=== PATIENT | male | born 1990 | race Caucasian/White ===

== ENCOUNTER 2024-04-24 19:42 | Day surgery (SDC) | payer SELFPAY ==
[2024-04-24] VITALS (8 sets, daily range): BP systolic 120–144; BP diastolic 72–87; BMI 26.7; BMI 27.3
[2024-04-24 11:57] LABS: % Basophils 1.1 % (0-2); % Eosinophils 3.9 % (0-6); % Immature Granulocytes 0.3 % (0-0.5); % Lymphocytes 31.6 % (20.5-51.1); % Monocytes 8.7 % (1.7-9.3); % Neutrophils 54.4 % (42.2-75.2); Absolute Basophils 0.1 10^3/uL (0-0.2); Absolute Eosinophils 0.2 10^3/uL (0-0.7); Absolute Monocytes 0.5 10^3/uL (0.1-0.6); Absolute Neutrophils 3.4 10^3/uL (1.4-6.5); Hematocrit 43.6 % (39.0-52.0); Hemoglobin 15.4 g/dL (13.0-18.0); Mean Corp Hgb Conc. 35.3 g/dL (33.0-37.0); Mean Corpuscular Hgb 29.9 pg (27.0-31.0); Mean Corpuscular Volume 84.7 fL (80.0-94.0); Mean Platelet Volume 8.3 fL (7.4-10.4); Nucleated Red Blood Cells % 0 % (-); Platelet Count 264 10^3/uL (130-400); Red Blood Cell Count 5.15 10^6/uL (4.70-6.10); Red Cell Dist. Width 12.3 % (11.5-14.5); White Blood Cell Count 6.2 10^3/uL (4.8-10.8)
[2024-04-24 12:15] LABS: ALT (SGPT) 36 U/L (0-50); AST (SGOT) 25 U/L (17-59); Albumin 4.8 g/dl (3.5-5.0); Alkaline Phosphatase 46 U/L (38-126); Blood Urea Nitrogen 16 mg/dl (9-20); Calcium 9.6 mg/dl (8.4-10.2); Carbon Dioxide 23 mmol/L (22-30); Chloride 104 mmol/L (98-107); Glucose 109 mg/dl (70-99); Lipase 77 U/L (23-300); Potassium 4.5 mmol/L (3.5-5.1); Sodium 137 mmol/L (135-145); Total Bilirubin 0.8 mg/dl (0.2-1.3); Total Protein 7.2 g/dl (6.3-8.2); eGFR > 60.00
[2024-04-24] MEDS: NSS 1000 IV ×2 (13:38→21:31)
[2024-04-24] MEDS: TORADOL 30 MG IV (13:42)
[2024-04-24 14:33] LABS: Urine Albumin Negative (Neg - Trace); Urine Bilirubin Negative (Negative); Urine Character Clear (Clear); Urine Color Yellow; Urine Glucose Negative (Negative); Urine Ketone Negative (Negative); Urine Leukocyte Negative (Negative); Urine Nitrite Negative (Negative); Urine Occult Blood 1+ (Negative); Urine Specific Gravity 1.015 (<1.030); Urine Urobilinogen Negative (Neg - 1+)
[2024-04-24 14:45] LABS: Urine Mucus Moderate; Urine Squamous Cell 0-2 /LPF (Few); Urine White Cell 0-2 /HPF (0-5)
[2024-04-24] MEDS: MORPHINE SULFATE 4 MG IV (15:43)
[2024-04-24] MEDS: ZOSYN 50 IV (15:44)
--- NOTE | 2024-04-24 15:53 | ED.GENMED ---
History of Present Illness
General
Chief Complaint: Abdominal Pain
Source: patient and spouse
Exam Limitations: none
Time Seen by Provider: 04/24/24 12:45
Nursing documentation reviewed up to this point in time: agreed with
History of Present Illness
History of Present Illness:
34-year-old male without significant past medical history presenting to the emergency department with worsening right lower quadrant abdominal pain since last night. Denies any significant radiating pain denies nausea vomiting diarrhea denies any
chest pain shortness of breath fevers or recent illness. No surgeries in the past.
Review of Systems
Review of Systems
Allergies reviewed?: Yes
All Other Systems: ROS reviewed and negative except as documented in HPI and ROS
Phy Exam
Physical Exam
Physical Exam:
GENERAL: Alert , in no apparent distress
EYE: pupils equal and reactive
NECK: Supple, no significant adenopathy.
ENT: o/p clr, mmm.
CARDIAC: Regular rate and rhythm .
LUNGS: Clear breath sounds bilaterally, no acute respiratory distress, no wheezes/rales/rhonchi
ABDOMEN: Tenderness palpation to the right lower quadrant at McBurney's point. No peritoneal signs remainder of the abdomen is soft
NEUROLOGICAL: Alert and oriented, no focal neuro deficits
SKIN: Warm and dry, skin intact.
MUSCULOSKELETAL: No edema, well perfused.
PSYCH: Normal and appropriate interaction.
Course
Orders/Labs/Results
Orders:
Orders
04/24/24 11:39
Complete Blood Count/With Diff Urgent
Comprehensive Metabolic Panel Urgent
Lipase Urgent
04/24/24 13:18
CT Abd/Pel (IV only)-DH only Urgent
Comment:
Reason For Exam: rlq pain
0.9% Sodium Chloride 1000 ml [Nss] 1,000 ml IV BOLUS
Ketorolac [Toradol] 30 mg IV NOW STA
04/24/24 14:23
Urinalysis Reflex To Culture Urgent
Date Specimen was Collected: 04/24/24
Time Specimen was Collected: 14:22
Urine Microscopic Reflex Cult Urgent
04/24/24 15:25
Piperacillin/Tazo 3.375 Gram [Zosyn] 3.375 gram in 50 ml IV NOW
04/24/24 15:37
Morphine Sulfate 4 mg IV NOW STA
04/24/24 16:55
Acetaminophen [Tylenol] 650 mg PO Q4HPRN PRN
HYDROmorphone [Dilaudid] 0.5 mg IV Q4HPRN PRN
04/24/24 17:04
HYDROmorphone [Dilaudid] 0.25 mg IV PACU-Q5MPRN PRN
HYDROmorphone [Dilaudid] 0.5 mg IV PACU-Q5MPRN PRN
Meperidine [Demerol] 12.5 mg IV PACU-Q5MPRN PRN
Ondansetron Injectable [Zofran] 4 mg IV PACU-ONCEPRN PRN
Prochlorperazine [Compazine] 5 mg IV PACU-ONCEPRN PRN
Notify MD As Directed
Notify physician if: for SDS patients with known or suspected sleep obstructive sleep apnea, monitor in the
PACU.
Notify MD for any apneic/desaturation episodes
O2 Therapy [RESP] Urgent
Titrate/Wean O2 to maintain O2 sat greater than (%): 92
Special Instructions: -Provide supplemental oxygen to achieve O2 sat of 92% or greater.
-After 15 min, may wean O2 and discontinue if patient is able to maintain O2 sat of 92%
or greater during recovery period.
If patient is a discharge home, without oxygen therapy, notify anestheiologist if
unable to maintain O2 SAT of 92% or greater on room air for MD clearance.
04/24/24 17:15
Normosol (Mult Electrolytes) [Normosol-R/Plasmalyte-A] 1,000 ml IV PER PROTOCOL
04/24/24 18:00
Piperacillin/Tazo 3.375 Gram [Zosyn] 3.375 gram in 50 ml IV Q6H
Abnormal Lab Results
04/24/24 04/24/24
11:39 14:23
Glucose 109 H mg/dl
(70-99)
Ur Occult Blood Reflex 1+ A
(Negative)
Urine RBC 7-10 A /HPF
(0-2)
04/24/24 11:39
04/24/24 11:39
Vital Signs
Initial and Last Documented VS:
Initial Vital Signs
Temp Pulse Resp BP Pulse Ox
98.4 F 75 20 127/85 100
04/24/24 11:31 04/24/24 11:31 04/24/24 11:31 04/24/24 11:31 04/24/24 11:31
Last Documented Vital Signs
Temp Pulse Resp BP Pulse Ox
98.4 F 75 20 127/85 100
04/24/24 11:31 04/24/24 11:31 04/24/24 11:31 04/24/24 11:31 04/24/24 11:31
MDM/Problems Addressed
MDM/Problems Addressed:
34-year-old male presenting to the emergency department today with concerns of right lower quadrant pain worsening since yesterday. Vital signs normal on arrival labs unremarkable CT scan showing potential early appendicitis which is consistent
with physical examination. Case discussed with general surgery patient started on Zosyn will be admitted for surgical intervention.
*Critical Care Note
Total Time (30-74mins, 75-104mins- exclusive of procedures): Not Applicable
ED Attending Note
-
Portions of this chart may have been created with voice recognition software.� Occasional wrong word or��sound alike� substitutions may have occurred due to the inherent limitations of voice recognition software.
Discharge Plan
Departure
Patient Disposition: Admit
Date of Disposition: 04/24/24
Time of Disposition: 15:54
Admit to: Med/Surg
Admit to doctor: Faviola
Presentation/result/management discussed w/ accepting MD/DO: Gen Surgery
Patient with high blood pressure during this ER visit?: No
Condition: Good
Covid-19: Not Applicable
Discharge Problem:
Acute appendicitis
Prescriptions:
No Action
minoxidil 2.5 mg Tablet
3.75 mg PO DAILY
dextroamphetamine-amphetamine [Adderall] 10 mg Tablet
10 mg PO DAILYPRN PRN (Reason: afternoon dose for work days)
terbinafine HCl 250 mg Tablet
250 mg PO DAILY
dextroamphetamine-amphetamine [Adderall XR] 20 mg Capsule,Extended Release 24hr
20 mg PO DAILYPRN PRN (Reason: work days)
finasteride 1 mg Tablet
1 mg PO DAILY
Referrals:
Yumiko Rojo MD [Family Provider] -
Interventions
Interventions:
*Risk Screen - Suicide Last Done: 04/24/24 11:31
*General Assessment Last Done: 04/24/24 11:31
*Neglect/Abuse Screening Last Done: 04/24/24 11:31
*ED COVID-19 Vaccine History Last Done: 04/24/24 12:56
BL-Ulsfxp-[id number] Assessment Last Done: 04/24/24 12:56
Discharge Date and Time
Print Language: SETSWANA
--- NOTE | 2024-04-24 17:19 | HPS.HSE ---
Family Physician
-
Family Physician: Yumiko Rojo
Chief Complaint
-
RLQ abdominal pain
History of Present Illness
Patient is a 34 yo M with a PMH notable for ADD and s/p open pyloromyotomy as a child who presents with 24 to 48 hours of RLQ abdominal pain. Gerhard states that his symptoms began on Tuesday night as a generalized bilateral abdominal discomfort.
Initially attributed the symptoms to MSK discomfort. Over the past 24 hours he has had worsening pain which is localized to the RLQ. No nausea or vomiting. No fevers or chills. Associated diarrhea. He denies any chronic GI issues. No strong
family history of IBD or colon cancers.
Medical History
Past Medical History
Past Medical History: Reports Psychiatric ([facility])
Past Surgical History: Reports Other (Open pyloromyotomy)
Social History
Tobacco: Non-smoker
Alcohol: Occasional
Drug: None
Personal:
Living: With Family
Employment: Employed
Family History
Family History: Not pertinent
Allergies / Home Medications
Allergies reflects when Allergies were last updated in [employer].
Home Medications with original date entered in [employer]
Allergy/Medication List:
NKDA
Review of Systems
-
A 12 point ROS was completed and negative except as noted: Yes
Physical Exam
Vital Signs
Vital Signs
Temp Pulse Resp BP Pulse Ox
98.4 F 75 20 127/85 100
04/24/24 11:31 04/24/24 11:31 04/24/24 11:31 04/24/24 11:31 04/24/24 11:31
Physical Exam
General: Well Developed, Well Nourished and No Apparent Distress
HEENT: NormoCephalic and Anicteric
Respiratory: Non Labored Respirations
Cardiac: Regular Rhythm
GI: Soft, Non Distended, Tender (RLQ) and Other (Nonperitoneal)
Musculoskeletal: No Edema
Skin: Warm and Dry
Neuro: Nonfocal/grossly intact
Laboratory Results
-
04/24/24 11:39
04/24/24 11:39
Laboratory Results
Total Bilirubin 0.8 mg/dl (0.2-1.3) 04/24/24 11:39
AST 25 U/L (17-59) 04/24/24 11:39
ALT 36 U/L (0-50) 04/24/24 11:39
Alkaline Phosphatase 46 U/L (38-126) 04/24/24 11:39
Lipase 77 U/L (23-300) 04/24/24 11:39
Data Reviewed
-
CT Scan: Image Personally Visualized and interpreted and Report Reviewed by me
Lab Data: Labs Reviewed by me
Impression/Plan
-
IMPRESSION:
Patient is a 34 yo M p/w acute appendicitis
The natural history and pathophysiology of appendicitis was discussed. Anatomy was reviewed. CT scan imaging as risks relates to his appendix was reviewed. Options for management including medical management with antibiotics versus surgical
management with appendectomy were considered and discussed. The pros and cons of both approaches was discussed. Specifically, we discussed failure of medical management and future episodes of appendicitis versus surgical risks. Recommend
appendectomy, patient agrees and willing to proceed.
Plan for laparoscopic appendectomy. The procedure itself, as well as the risks, benefits, and alternatives was discussed. Specifically, we discussed the risk of bleeding, infection, injury to surrounding structures (bowel, bladder), staple line
leak, need for open procedure. Typical postprocedure recovery was discussed. All questions answered. Consent signed.
PLAN:
-- Laparoscopic appendectomy
-- NPO, IVF
-- Pain control: Tylenol and IV Dilaudid PRN
-- Abx: Zosyn
-- Admit post-op
[2024-04-24] MEDS: DILAUDID 0.5 MG IV ×2 (18:00→22:00)
--- NOTE | 2024-04-24 18:49 | W.SUR.PREOP ---
Pre-Operative Surgical Note
-
I have examined this patient prior to the performance of the scheduled procedure.
The patient's condition is unchanged from the time of the current History and
Physical and the patient is able to undergo the scheduled procedure.
--- NOTE | 2024-04-24 20:21 | W.IMMPOSTOP ---
Surgical Immed Post Op Note
-
Primary Surgeon: Faviola
Assisting Surgeon: None
Pre-op Diagnosis: Acute appendicitis
Post-op Diagnosis: Acute appendicitis
Procedure Performed: Laparoscopic appendectomy
Anesthesia Type: General
Specimen / Cultures:
1. Appendix
Estimated Blood Loss: 3 cc
Complications: None
Operative Findings:
1. Acutely inflamed appendix, mild, no perforation or spillage, mild serous rectaive fluid
2. Mesentery with Ligasure, base with cruz load stapler
[2024-04-25 00:57] VITALS: BP 115/61
[2024-04-25 01:48] VITALS: BP 117/60
[2024-04-25 03:13] VITALS: BP 114/60
[2024-04-25 05:26] VITALS: BMI 28.7
[2024-04-25] MEDS: TYLENOL 650 MG PO (07:27)
[2024-04-25 07:34] VITALS: BP 112/67
[2024-04-25] MEDS: DILAUDID 0.5 MG IV (10:07)
--- NOTE | 2024-04-25 10:22 | CM ---
Reviewed the chart notes. Patient discharged.
--- NOTE | 2024-04-25 11:03 | W.PN.GS2 ---
Today's Communication / Plan
-
Possible DC later today
Assessment / Plan
-
34M POD1 s/p lap appy for acute appendicitis
AFVSS, ambulating, henry PO. Poor pain control 2/2 not taking meds, otherwise doing well.
Advised to alternate tylenol/ibuprofen, tramadol for breakthrough,. Advised to stay ahead of the pain rather than delaying taking meds.
Will re-eval this aftrenoon for readiness for DC
Subjective Data
-
Date of Service: April 25, 2024
Amblating, henry PO, denies n/v, c/o of poor pain control as he is trying to avoid takng pain meds
Objective Data
-
Intake and Output
04/24/24 04/25/24 04/26/24
06:59 06:59 06:59
Intake Total 680 / 680
Balance 680 / 680
Intake:
Oral fluids 480 / 480
IV fluids (Total) 200 / 200
Normosol 200 / 200
Vital Signs
Temp Pulse Resp BP Pulse Ox
98.0 F 91 12 112/67 95
04/25/24 07:34 04/25/24 07:34 04/25/24 07:34 04/25/24 07:34 04/25/24 07:35
Lab Results
04/24/24 11:39
04/24/24 11:39
Calcium 9.6 mg/dl (8.4-10.2) 04/24/24 11:39
Total Bilirubin 0.8 mg/dl (0.2-1.3) 04/24/24 11:39
AST 25 U/L (17-59) 04/24/24 11:39
ALT 36 U/L (0-50) 04/24/24 11:39
Alkaline Phosphatase 46 U/L (38-126) 04/24/24 11:39
Total Protein 7.2 g/dl (6.3-8.2) 04/24/24 11:39
Albumin 4.8 g/dl (3.5-5.0) 04/24/24 11:39
Physical Exam
-
Gen: NAD
Abd: soft, approp ttp, incisions cdi with glue
[2024-04-25 11:10] VITALS: BP 104/61
== END 2024-04-25 14:01 | disposition home or self-care (01) ==
LOC: SDS 19:42
PROVIDERS: Physician Assistant; ATTENDING PHYSICIAN Surgery; EMERGENCY PHYSICIAN Emergency Medicine; FAMILY PHYSICIAN Internal Medicine
DX: K38.8 Other specified diseases of appendix (principal)
CPT/HCPCS: 44970; 88304; 74177; 80053; 81003; 81015; 83690; 85025; 96361; 96365; 96375; 99285; A4648; C1776; Q9967